=== PATIENT | female | born 1960 | race African-American/Black ===

== ENCOUNTER → 2016-12-29 | Outpatient (CLI) | payer OTHER ==
[~2016-12-29] MED LIST: ASPI-110 PO; FAMOTIDINE 20 MG/2 ML VIAL ONE; FERR325T20 PO; LEVO100T5 PO; LEVO25TA4 PO; LISI2.5T3 PO; VITA1000 PO
[2016-12-29 12:09] LABS: AUTOMATED NEUTROPHIL # 2.7 TH/MM3 (1.8-7.7); BASOPHIL % 0.3 % (0.0-2.0); EOSINOPHIL % 0.4 % (0.0-4.0); HEMO FLAGS DIFF FINAL; LYMPH % 25.1 % (9.0-44.0); MEAN CELL VOLUME 90.2 FL (80.0-100.0); MEAN CORPUSCULAR HEMOGLOBIN 29.5 PG (27.0-34.0); MEAN CORPUSCULAR HGB CONC 32.7 % (32.0-36.0); MONO % 7.1 % (0.0-8.0); NEUT % 67.1 % (16.0-70.0); PLATELET COUNT 261 TH/MM3 (150-450); RED BLOOD COUNT 4.54 MIL/MM3 (4.00-5.30); RED CELL DISTRIBUTION WIDTH 15.2 % (11.6-17.2); WHITE BLOOD COUNT 4.1 TH/MM3 (4.0-11.0)
[2016-12-29 12:27] LABS: ANION GAP 4 MEQ/L (5-15); BICARBONATE 29.2 MEQ/L (21.0-32.0); BLOOD UREA NITROGEN 13 MG/DL (7-18); CHLORIDE 105 MEQ/L (98-107); GLOMERULAR FILTRATION RATE 102 ML/MIN (>89); GLUCOSE,FASTING 74 MG/DL (74-99); POTASSIUM 3.7 MEQ/L (3.5-5.1); SODIUM (NA) 138 MEQ/L (136-145)
--- NOTE | 2016-12-29 12:31 | RADRPT ---
EXAM DATE/TIME: 12/29/2016 12:10 [place] COMPARISON: No previous studies available for comparison. INDICATIONS : Evaluate for pneumonia, pneumothorax or communicable disease. Pre op hysterectomy. MEDICAL HISTORY : Hypertension. SURGICAL HISTORY : None. ENCOUNTER: Initial ACUITY: 1 day PAIN SCORE: 0/10 LOCATION: Bilateral chest FINDINGS: PA and lateral views of the chest demonstrate the lungs to be symmetrically aerated without evidence of mass, infiltrate or effusion. The cardiomediastinal contours are unremarkable. Osseous structure s are intact. CONCLUSION: No acute cardiopulmonary findings are identified. Darnell Ramos MD on December 29, 2016 at 12:29 Board Certified Radiologist. This report was verified electronically.
[2016-12-29 12:35] LABS: BHCG SCREEN QUALITATIVE LESS THAN 1 MIU/ML (0-5)
[2016-12-29 12:54] LABS: BLOOD, URINE NEG (NEG); GLUCOSE,URINE NEG (NEG); KETONE, URINE NEG (NEG); MUCUS URINE FEW /lpf (OCC); NITRITE,URINE NEG (NEG); SQUAMOUS EPITHELIAL CELL URINE <1 /hpf (0-5); URINE COLOR COLORLESS (YELLW/STRAW)
--- NOTE | 2016-12-29 16:22 | EKG ---
Date Performed: 12/29/2016 Time Performed: 11:41:17 PTAGE: 56 years EKG: SINUS BRADYCARDIA BORDERLINE ECG NO PREVIOUS TRACING DOCTOR: Ruben Crenshaw Interpretating Date/Time 12/29/2016 16:20:24
== END ==
LOC: CPRE 11:12
PROVIDERS: ATTEND Obstetrics & Gynecology
DX: Z01.812 Encounter for preprocedural laboratory examination (principal); Z01.810 Encounter for preprocedural cardiovascular examination; Z01.811 Encounter for preprocedural respiratory examination
CPT/HCPCS: 36415; 71020; 80048; 81001; 84703; 85025; 86850; 86900; 86901; 93005

== ENCOUNTER 2016-12-31 05:14 | Observation (INO) | payer OTHER ==
--- NOTE | 2016-12-29 20:19 | MH ---
cc: ASAEL YEN MD DATE OF ADMISSION 12/31/2016 1960 SCHEDULED PROCEDURE Laparoscopic-assisted vaginal hysterectomy and bilateral salpingo-oophorectomy. INDICATION Perimenopausal menorrhagia, known uterine fibroids, desire to have definitive therapy HISTORY OF PRESENT ILLNESS history of present The patient is a 56-year-old black female 2, para 3 who is in laurie-menopause with bleeding that she is finding unacceptable in amount, timing and duration. She has a moderately sized fibroid and endometrial biopsy that does not show any endometrial hyperplasia or cancer and sonography consistent with fibroid but normal adnexa. She actually has multiple small fibroids and at least one that is submucosal and one that is pedunculated. She desires definitive therapy in the form of a vaginal hysterectomy. She does not have any other chronic or systemic illnesses other than mild hypothyroidism for which she takes 25 mcg of Levothyroxine daily and lisinopril for mild hypertension 2.5 mg daily. MEDICATIONS Her only other medications are 1. Vitamin D 2. Iron 3. Baby aspirin daily which she is stopping at this time. SOCIAL HISTORY She does not smoke, drink or use illicit drugs. She exercises regularly. PAST SURGICAL HISTORY Has had no prior surgeries. She is up-to-date on Pap smear, mammography, colonoscopy. ALLERGIES PHYSICAL EXAMINATION GENERAL: She is a well-developed, well-nourished black female in no acute distress. VITAL SIGNS: Her weight is 155. Her height is 5 feet 3 inches. Her blood pressure is 126/78. NECK: She has no thyroid enlargement. LUNGS: Clear to auscultation and percussion. HEART: Rate and rhythm are regular without murmurs, heaves or thrills. BREASTS: Exam is without dominant mass, nipple discharge, skin retraction or adenopathy. ABDOMEN: Benign. PELVIC: The uterus is not palpable abdominally but on pelvic exam appears to be about a 14-week size uterus with multiple irregular fibroids. Cervix is visually unremarkable. There is no significant descent. RECTAL: Guaiac in the office at prior visit was negative. IMPRESSION Multiple uterine fibroids, several submucosal in a laurie-menopausal female who is having unacceptable bleeding in amount, timing and duration. She is not on hormone therapy at this time. She desires definitive therapy which we will go ahead and do as an MUKESH BSO and then begin postmenopausal estrogen replacement. Risks, benefits, expectations including the damage to bowel, bladder, blood vessels complications of medication and anesthesia up to including have all been reviewed in detail. She has signed consents and is comfortable proceeding on . MD GIANCARLO Hernandez/ /7:50 PM /8:00 PM
[~2016-12-31] VITALS: Ht 160 cm; Wt 69.5 kg
[~2016-12-31 05:14] MED LIST changes: -FAMOTIDINE 20 MG/2 ML VIAL ONE; -LEVO100T5 PO
[2016-12-31] MEDS ORDERED: LACTATED RINGER'S 1000 ML IV PRN (05:45)
[2016-12-31] MEDS ORDERED: CHLORHEXIDINE GLUCONATE 2 % 1 PACK (2 CLOTHS) TOPICAL PRN (05:45)
[2016-12-31] MEDS ORDERED: POVIDONE IODINE 5% (ANTISEPSIS KIT) 4 APPLICATIONS EACH NARE PRN (05:45)
[2016-12-31] MEDS ORDERED: ceFAZolin 2 GM PREMIX 50 ML IV SCH (05:45)
[2016-12-31] MEDS ORDERED: METOPROLOL TARTRATE 25 MG TAB PO PRN (05:45)
[2016-12-31] MEDS ORDERED: SODIUM CHLORID 0.9% 500 ML IV PRN (05:45)
[2016-12-31] MEDS ORDERED: INSULIN HUMAN REGULAR 1,000 UNITS/10 ML VIAL SQ PRN (05:45)
[2016-12-31] MEDS ORDERED: BUPIVACAINE/EPINEPHRINE 0.25% PF 30 ML VIAL ONE (07:07)
[2016-12-31] MEDS ORDERED: SODIUM CHLORIDE 0.9% 20 ML VIAL ONE (07:07)
[2016-12-31] MEDS ORDERED: VASOPRESSIN 20 UNITS/ML VIAL (IVTITR) ONE (07:08)
[2016-12-31] MEDS ORDERED: ESTROGENS CONJUGATED VAG CREA 15 APPL/30 GM TUBE ONE (07:08)
[2016-12-31] MEDS ORDERED: HYDROmorphone HCL PF 2 MG/ML VIAL ONE (08:00)
[2016-12-31] MEDS ORDERED: METHYLENE BLUE 10 MG/ML VIAL OTHER ONE (09:15)
[2016-12-31] MEDS ORDERED: LACTATED RINGER'S 1000 ML INJ 1,000 ML IV ONE (11:46)
[2016-12-31] MEDS ORDERED: LACTATED RINGER'S 1000 ML INJ 1,000 ML IV SCH (11:53)
--- NOTE | 2016-12-31 11:53 | PD.OP ---
Operative Report Date of Surgery: Dec 31, 2016 Preoperative Diagnosis: large uterine fibroids, menorrhagia Postoperative Diagnosis: same, incidental cystotomy and repair of paper thin hypotonic and distended bladder Procedure: LAVHBSO incidental cystotomy and repair Surgeon: Nuris Syed Project Management It Specialist(s): Nicolette Operation and Findings: Nuris Coyle MD Dec 31, 2016 11:53
[2016-12-31] MEDS ORDERED: ROCURONIUM INJ 50 MG/5 ML SYRINGE IV PUSH ONE (12:00)
[2016-12-31] MEDS ORDERED: LORazepam 0.5 MG TAB PO PRN (12:00)
[2016-12-31] MEDS ORDERED: IBUPROFEN 600 MG TAB PO PRN (12:00)
[2016-12-31] MEDS ORDERED: ZOLPIDEM TARTRATE 5 MG TAB PO PRN (12:00)
[2016-12-31] MEDS ORDERED: LIDOCAINE HCL 1% PF 5 ML AMPULE OTHER ONE (12:00)
[2016-12-31] MEDS ORDERED: NEOSTIGMINE 3 MG/3 ML SYR IV ONE (12:00)
[2016-12-31] MEDS ORDERED: SODIUM CHLORIDE 0.9% FLUSH 10 ML FLUSH IV FLUSH PRN (12:00)
[2016-12-31] MEDS ORDERED: PROMETHAZINE INJ 25 MG/ML VIAL IM PRN (12:00)
[2016-12-31] MEDS ORDERED: DEXAMETHASONE SOD PHOS 4 MG/ML VIAL IV ONE (12:00)
[2016-12-31] MEDS ORDERED: ePHEDrine/NS 25 MG/5 ML SYR IV ONE (12:00)
[2016-12-31] MEDS ORDERED: GLYCOPYRROLATE 1 MG/5 ML SYRINGE IV PUSH ONE (12:00)
[2016-12-31] MEDS ORDERED: ONDANSETRON HCL 4 MG/2 ML VIAL IV PUSH ONE (12:00)
[2016-12-31] MEDS ORDERED: ONDANSETRON HCL 4 MG/2 ML VIAL IVP PRN ×3 (12:00→16:00)
[2016-12-31] MEDS ORDERED: PROPOFOL 200 MG/20 ML AMP IV ONE (12:00)
[2016-12-31] MEDS ORDERED: HYDROmorphone HCL PF 1 MG/ML VIAL IVP PRN (12:00)
[2016-12-31] MEDS ORDERED: NORMOSOL R INJ 1,000 ML IV ONE (12:00)
[2016-12-31] MEDS ORDERED: MIDAZOLAM HCL 2 MG/2 ML VIAL IV ONE (12:00)
[2016-12-31] MEDS ORDERED: DO NOT ADM ANY ANTICOAGULANT DRUGS PRN (12:15)
--- NOTE | 2016-12-31 12:31 | MP ---
cc: NURIS YEN DATE OF SURGERY 12/31/2016 DATE OF 1960 PREOPERATIVE DIAGNOSIS Large intrauterine fibroids with menorrhagia. POSTOPERATIVE DIAGNOSIS Large intrauterine fibroids with menorrhagia, incidental cystotomy and repair. ANESTHESIA General endotracheal SURGEON Nuris Yen MD MACHINE WASHER Nya Will PROCEDURE LAVH-BSO, repair of incidental cystotomy, enterocele repair and cystoscopy. ANESTHESIA General endotracheal FINDINGS Examination under anesthesia revealed a large uterus that filled the cul-de-sac and was about 14 weeks in size. It was irregular in nature. The cervix was multiparous. There was really no descent. Upon entering the peritoneal cavity, the uterus was irregular with multiple large fibroids. It extended to the left side wall with a very foreshortened round ligament. Although there was a large posterior lower uterine segment fibroid and cervical fibroid on the right side into the broad ligament, there were no adhesions and it was relatively straightforward the structures from the other attachments. The bladder was gently pushed downward with minimal effort. However when changing to vaginal approach the starkey bag was noted to have air consistent with cystotomy. The vaginal portion of the case was completed and then the pneumoperitoneum replaced and the bladder evaluated from above. Three separate cystotomies were noted in the dome--and repaired laparoscopically with chromic interrupteds. Methylene blue was used in saline that filled the bladder to 350 cc to confirm water tight seal. Then ureteral patency was confirmed on cystoscopy. She will keep starkey for two weeks. EBL was 50cc and counts correct. PROCEDURE Patient was identified as Renea Salguero and her surgery reviewed in holding. SHe has again praised of risks of damage to bowels, bladder, vessels, risk of medications and anesthesia. She received two grams ancef IV. She was taken to OR and placed under GET in dorsal lithotomy position. A time out was done. She had sequentials on. EUA was performed and then starkey placed in sterile fashion. Cervix grasped with single tooth tenaculum and [place] plaed in os. Attention was directed to abdomen. 5mm incision made 2 inches above umbilicus after marcaine infiltration. Trochar and sleeve placed under direct visualization. Then two fives place in right and left lower quadrants with transillumination. Sytematic evaluation of the abdominal and pelvic contents was performed. The large irregular uterus was lifted out of cul de sace to show large cervical and right broad ligament fibroids. The right round ligament was transected and the anterior leaf of the broad ligament was taken off the lower uterine segment and anterior fibroids. The right tube and ovary were placed on gentle medial tractions and the infindibulopelvic ligament transected. The plane was taken to the transected round ligament and then subsequent pedicles taken down to uterosacral. The bladder was continually pushed down sharply and gently, but despite this, incurred three cystotomies in the blunt dissection. These were not noted until the vaginal portion of the case was initiated and air noted in starkey bag. Aware of cystotomy, the decision was made to complete hysterectomy first. The cervix was grasped with a single-tooth tenaculum. It was infiltrated with Marcaine and then it was circumcised with the Bovie on cutting. Both the anterior and posterior cul-de-sacs were easily entered and two passes using Annemarie clamps were used to clamp, cut and tie the residual uterosacrals and another small pedicle above that. The uterus was removed intact from the intrauterine cavity through the vagina and sent to pathology. At this point, the cuff was evaluated and the enterocele obliterated and then the uterosacrals were plicated and the vaginal vault was closed in a vertical fashion. Attention was directed to the abdomen and the pneumoperitoneum was re-instilled and systematic evaluation of the abdominal pelvic contents showed that there was one visibly obvious 1 cm cystotomy in the fundal portion of the bladder on the left side. This was repaired with 2-0 chromic using extracorporeal suture technique and hydro-distension of the bladder with methylene blue showed two additional areas that require repaired and these were successfully repaired with 2-[address] Erickson Maurice of Urology did come in to evaluate the repair. We did fill the bladder to greater than 350 cc with no evidence of further leakage. Then the pneumoperitoneum was released and we went below with the scope to further evaluate the bladder. The bladder was filled with 250 cc of saline and then the Starkey catheter was removed and the laparoscope placed into the intravesicular cavity easily showing both ureteral orifices and excellent flow from both ureteral orifices. There was no evidence of iatrogenic injury or evidence that there were other holes left unrepaired. The bladder appeared to be watertight. A final evaluation laparoscopically was done from above which confirmed the watertight nature of the bladder and then the pneumoperitoneum was released under direct visualization. The 12-mm port on the left side was closed with a single fascial stitch and then the subcuticular layer and skin were closed with a 4-0 Monocryl in interrupted's. She was placed in dorsal supine position, awoken and taken to the recovery room in stable condition. Her Starkey catheter will be left in for two weeks and she will have a cystogram prior to the removal of the Starkey. MD GIANCARLO Hernandez/MICHELLE /11:57 AM /12:08 PM MTDD
[2016-12-31 13:32] VITALS: BP 103/59; PULSE 62; RESP 16; TEMP 97.5
[2016-12-31 17:35] VITALS: BP 128/67; PULSE 80; RESP 18; TEMP 97.9
[2016-12-31] MEDS ORDERED: PILL SPLITTER OTHER PRN (19:45)
[2016-12-31 20:00] VITALS: BP 133/70; PULSE 65; RESP 16; TEMP 98.4
[2016-12-31] MEDS ORDERED: SODIUM CHLORIDE 0.9% FLUSH 10 ML FLUSH IV FLUSH SCH (21:00)
[2016-12-31] MEDS: oxyCODONE/ACETAMINOPHEN 5 MG/325 MG TAB PO PRN (21:41)
[2016-12-31] MEDS: CIPROFLOXACIN 500 MG TAB PO SCH (21:41)
[2017-01-01] VITALS: BP 107/63; PULSE 67; RESP 16; TEMP 98.5
--- NOTE | 2017-01-01 01:30 | HHI.DCPOC ---
Discharge Care Plan Report Symptoms to Your Doctor -Temperature above 100.5 degrees -Redness, of incision or excessive or foul smelling drainage -Unusual pain or calf pain -Increased vaginal bleeding -Painful or difficulty urinating -Feelings of extreme sadness or anxiety after 2 weeks Goals to Promote Your Health * To prevent worsening of your condition and complications * To maintain your health at the optimal level Directions to Meet Your Goals Take your medications as prescribed Follow your dietary instruction Follow activity as directed Ensure plenty of rest for recovery Drink fluids for hydration Keep your appointments as scheduled Take your immunizations and boosters as scheduled If your symptoms worsen call your PCP, if no PCP go to Urgent Care Center or Emergency Room Smoking is Dangerous to Your Health. Avoid second hand smoke Call the 24-hour crisis hotline for domestic abuse at Nuris Syed MD Jan 01, 2017 01:30
[2017-01-01] MEDS: DOCUSATE SODIUM 100 MG CAP PO SCH ×2 (01:58→11:17)
[2017-01-01] MEDS: oxyCODONE/ACETAMINOPHEN 5 MG/325 MG TAB PO PRN ×3 (01:58→11:17)
[2017-01-01 04:00] VITALS: BP 110/66; PULSE 57; RESP 16; TEMP 98.8; O2SAT 98
[2017-01-01 05:43] LABS: BASOPHIL % 0.2 % (0.0-2.0); EOSINOPHIL % 0.1 % (0.0-4.0); HEMATOCRIT 35.4 % (35.0-46.0); HEMO FLAGS DIFF FINAL; LYMPH % 14.4 % (9.0-44.0); LYMPHOCYTE # 1.1 TH/MM3 (1.0-4.8); MEAN CELL VOLUME 88.6 FL (80.0-100.0); MEAN CORPUSCULAR HEMOGLOBIN 29.8 PG (27.0-34.0); MEAN CORPUSCULAR HGB CONC 33.6 % (32.0-36.0); MONO % 7.8 % (0.0-8.0); NEUT % 77.5 % (16.0-70.0); PLATELET COUNT 224 TH/MM3 (150-450); RED CELL DISTRIBUTION WIDTH 14.9 % (11.6-17.2); WHITE BLOOD COUNT 7.7 TH/MM3 (4.0-11.0)
[2017-01-01] MEDS ORDERED: LISINOPRIL 5 MG TAB PO SCH (06:00)
[2017-01-01] MEDS ORDERED: LEVOTHYROXINE SODIUM 25 MCG TAB PO SCH (06:00)
[2017-01-01 07:42] LABS: POTASSIUM 3.7 MEQ/L (3.5-5.1)
[2017-01-01 08:25] VITALS: BP 125/65; PULSE 59; RESP 18; TEMP 98.7; O2SAT 99
--- NOTE | 2017-01-01 08:44 | HHI.PR ---
Subjective Remarks Doing well, pain is well controlled, eating well. Objective Vital Signs Vital Signs Date Time Temp Pulse Resp B/P (MAP) Pulse Ox O2 Delivery O2 Flow Rate FiO2 01/01/17 04:00 98.8 57 16 110/66 (81) 98 01/01/17 00:00 98.5 67 16 107/63 (78) 12/31/16 22:15 21 12/31/16 20:00 98.4 65 16 133/70 (91) 12/31/16 17:35 97.9 80 18 128/67 (87) 12/31/16 13:32 97.5 62 16 103/59 (74) 12/31/16 12:45 61 13 101/55 (70) 96 Nasal Cannula 2 12/31/16 12:30 62 14 105/51 (69) 95 Nasal Cannula 2 12/31/16 12:14 98.0 76 20 120/57 (78) 99 Nasal Cannula 2 I/O 12/31/16 12/31/16 12/31/16 01/01/17 01/01/17 01/01/17 07:00 15:00 23:00 07:00 15:00 23:00 Intake Total 50 ml 2000 ml Output Total 350 ml 2200 ml Balance 50 ml 1650 ml -2200 ml Intake IV Total 50 ml Other 2000 ml Output Urine Total 350 ml 2200 ml Result Diagram: 01/01/1751901/01/1720 Objective Remarks Chest is clear, regular rate and rhythm. Abdomen is soft and non-distended. Incisions clean and dry. Ext no CCE. A/P Assessment and Plan Post Op Day 1 Doing well counseled on catheter use Home today and return to office in one weeks. Nuris Syed MD Jan 01, 2017 08:44
[2017-01-01] MEDS: CIPROFLOXACIN 500 MG TAB PO SCH (10:36)
== END 2017-01-01 13:19 | disposition home or self-care (01) ==
LOC: HSDC 05:14 → HSDI 11:56 → H1EA 12:56
PROVIDERS: ADMIT Obstetrics & Gynecology; ATTEND Obstetrics & Gynecology
DX: N92.0 Excessive and frequent menstruation with regular cycle (principal); D25.0 Submucous leiomyoma of uterus; N81.5 Vaginal enterocele; N88.8 Other specified noninflammatory disorders of cervix uteri; N85.8 Other specified noninflammatory disorders of uterus; S37.23XA Laceration of bladder, initial encounter; I10 Essential (primary) hypertension; E03.9 Hypothyroidism, unspecified; Y83.8 Other surgical procedures as the cause of abnormal reaction of the patient, or of later complication, without mention of misadventure at the time of the procedure; Y73.8 Miscellaneous gastroenterology and urology devices associated with adverse incidents, not elsewhere classified
CPT/HCPCS: 80048; 85025; 88307; 94150; G0378; J0690; J1100; J1170; J2250; J2405; J2710; J3010; J7120